=== PATIENT | female | born 1955 | race Caucasian/White ===

== ENCOUNTER → 2017-05-11 | Outpatient (CLI) | payer BC ==
--- NOTE | 2017-05-11 15:26 | RAD ---
DATE: 05/11/2017 EXAM: DIGITAL SCREEN BILAT W/CAD HISTORY: Screening study. COMPARISON: 12/18/2014 This study was interpreted with the benefit of Computerized Aided Detection (CAD). FINDINGS: Digital MLO and CC mammograms of both breasts were obtained. Comparison is made to the patient's outside mammograms from [facility] dated 12/18/2014. The breast parenchyma is composed of scattered fibroglandular densities which can obscure a lesion on mammography (breast density code B). Benign-appearing calcifications are seen within both breasts. A benign appearing nodular densities within the retroareolar region of the left breast, unchanged. No spiculated mass is seen. No malignant appearing calcification or area of architectural distortion is noted. IMPRESSION: BI-RADS Category 2 benign findings. There is no mammographic evidence of malignancy. Routine yearly screening mammography is recommended for follow-up. BI-RADS CATEGORY: 2 BENIGN FINDING(S) RECOMMENDED FOLLOW-UP: 12M 12 MONTH FOLLOW-UP PQRS compliance statement: Patient information was entered into a reminder system with a target due date 05/11/2018 for the next mammogram. Mammography is a sensitive method for finding small breast cancers, but it does not detect them all and is not a substitute for careful clinical examination. A negative mammogram does not negate a clinically suspicious finding and should not result in delay in biopsying a clinically suspicious abnormality. "Our facility is accredited by the [employer] Mammography Program."
== END | disposition home or self-care (01) ==
LOC: MAMMO 08:07
PROVIDERS: ATTEND Family Medicine
DX: Z12.31 Encounter for screening mammogram for malignant neoplasm of breast (principal)
CPT/HCPCS: G0202; 77067